=== PATIENT | male | born 1975 | race Caucasian/White ===

== ENCOUNTER → 2019-10-05 11:39 | Outpatient (BNVA) | payer OTHER, SELFPAY | PROVIDERS: Visit Provider Emergency Medicine | DX: Z82.61 Family history of arthritis (principal); M79.641 Pain in right hand | CPT/HCPCS: 71046; 73130; 80053; 85025; 85651; 86140; 86431; 86705; 86706; 86709; 86803; 87340 ==

== ENCOUNTER → 2019-10-25 15:16 | Outpatient (BNVA) | payer OTHER, SELFPAY | PROVIDERS: Visit Provider Family Medicine | DX: R70.0 Elevated erythrocyte sedimentation rate (principal); M79.641 Pain in right hand; M79.642 Pain in left hand; Z82.61 Family history of arthritis; R79.82 Elevated C-reactive protein (CRP); R30.0 Dysuria; Z13.1 Encounter for screening for diabetes mellitus; Z13.220 Encounter for screening for lipoid disorders; Z13.6 Encounter for screening for cardiovascular disorders; Z83.3 Family history of diabetes mellitus | CPT/HCPCS: 80061; 82607; 82652; 83036; 83721; 84443; 86160; 86225; 86235 ==

== ENCOUNTER → 2020-01-09 13:50 | Outpatient (BNVA) | payer OTHER, SELFPAY | PROVIDERS: Visit Provider Internal Medicine Rheumatology | DX: M06.00 Rheumatoid arthritis without rheumatoid factor, unspecified site (principal); Z79.899 Other long term (current) drug therapy; M77.11 Lateral epicondylitis, right elbow; M77.12 Lateral epicondylitis, left elbow | CPT/HCPCS: 99204 ==

== ENCOUNTER → 2020-01-10 09:19 | Outpatient (BNVA) | payer OTHER, SELFPAY | PROVIDERS: Visit Provider Internal Medicine Rheumatology | DX: Z79.899 Other long term (current) drug therapy (principal) | CPT/HCPCS: 85651; 86140; 86812 ==

== ENCOUNTER → 2020-02-08 12:18 | Outpatient (BNVA) | payer OTHER, SELFPAY | PROVIDERS: Visit Provider Internal Medicine Rheumatology | DX: Z79.899 Other long term (current) drug therapy (principal); Z23 Encounter for immunization | CPT/HCPCS: 80076; 82565; 85025; 85651 ==

== ENCOUNTER → 2020-05-07 13:56 | Outpatient (BNVA) | payer OTHER, SELFPAY | PROVIDERS: PCP Family Medicine; Visit Provider Internal Medicine Rheumatology | DX: M06.00 Rheumatoid arthritis without rheumatoid factor, unspecified site (principal); Z79.899 Other long term (current) drug therapy; Z11.1 Encounter for screening for respiratory tuberculosis; M77.11 Lateral epicondylitis, right elbow; M77.12 Lateral epicondylitis, left elbow | CPT/HCPCS: 36415; 80076; 82565; 85025; 85651; 86140; 86480; 99214 ==

== ENCOUNTER → 2020-09-04 12:52 | Outpatient (BNVA) | payer OTHER, SELFPAY | PROVIDERS: PCP Family Medicine; Visit Provider Internal Medicine Rheumatology | DX: M06.00 Rheumatoid arthritis without rheumatoid factor, unspecified site (principal); Z79.899 Other long term (current) drug therapy | CPT/HCPCS: 36415; 80076; 82565; 85025; 86140 ==

== ENCOUNTER → 2023-03-19 09:00 | Outpatient (BNVA) | payer SELFPAY | PROVIDERS: PCP Family Medicine; Referring Provider Internal Medicine Rheumatology; Visit Provider Internal Medicine Rheumatology | DX: M06.00 Rheumatoid arthritis without rheumatoid factor, unspecified site (principal); Z79.899 Other long term (current) drug therapy | CPT/HCPCS: 80076; 82565; 85025; 86140 ==

== ENCOUNTER → 2023-07-23 09:26 | Outpatient (BNVA) | payer SELFPAY | PROVIDERS: PCP Family Medicine; Referring Provider Internal Medicine Rheumatology; Visit Provider Internal Medicine Rheumatology | DX: Z79.899 Other long term (current) drug therapy (principal); M06.00 Rheumatoid arthritis without rheumatoid factor, unspecified site | CPT/HCPCS: 80076; 82565; 85025; 86140 ==

== ENCOUNTER → 2024-02-18 09:16 | Outpatient (BNVA) | payer SELFPAY | PROVIDERS: PCP Family Medicine; Referring Provider Family Medicine; Visit Provider Family Medicine | DX: M06.09 Rheumatoid arthritis without rheumatoid factor, multiple sites (principal); Z71.89 Other specified counseling; Z79.899 Other long term (current) drug therapy; Z79.1 Long term (current) use of non-steroidal anti-inflammatories (NSAID) | CPT/HCPCS: 80076; 82565; 85025; 85651; 86140 ==